=== PATIENT | female | born 1960 | race Caucasian/White ===

== ENCOUNTER 2021-10-30 12:30 | Outpatient (RCR) | payer OTHER, SELFPAY | END 2022-10-29 23:59 | disposition home or self-care (01) | PROVIDERS: PCP Family Medicine; Visit Provider Orthopaedic Surgery | DX: S62.615A Displaced fracture of proximal phalanx of left ring finger, initial encounter for closed fracture (principal); S62.617A Displaced fracture of proximal phalanx of left little finger, initial encounter for closed fracture; Z51.89 Encounter for other specified aftercare | CPT/HCPCS: 97110; 97140; 97165; X5282 ==

== ENCOUNTER 2025-02-11 08:38 | Emergency (ER) | payer OTHER, SELFPAY ==
--- OUTSIDE RECORDS SUMMARY | 2025-02-11 08:40 | XMS_ITS | Clinical Summary ---
Author Organization [employer] [facility] Address [address] [place] [address] Care Team Providers Care Rrts Name Role Phone Jennifer Austin DO Primary Care Provider [phone] Allergies No known active allergies Medications estradioL (Estrace) 0.01% (0.1 mg/g) vaginal creamIndications :Vaginal atrophy Place a pea-sized amount into the vaginal canal nightly for 2 weeks then 2-3 nights per week thereafter 42.5 g 3 4 Active chlorthalidone (HYGROTON) 25 mg tabletIndication s:Essential hypertension Take 1 Tablet (25 mg) by mouth once daily in the morning. 90 Tablet 3 5 Active potassium chloride (K-TAB) 10 mEq extended-release tabletIndication s:Hypokalemia Take 1 Tablet (10 mEq) by mouth once daily with a meal. 90 Tablet 3 5 Active gabapentin (NEURONTIN) 100 mg capsuleIndicatio ns:Restless legs syndrome (RLS) Take 2 Capsules (200 mg) by mouth at bedtime. 180 Capsule 3 5 Active valACYclovir (VALTREX) 1 gram tabletIndication s:Cold sore Take 1 Tablet (1 g) by mouth two times daily. Take for 2-3 days as needed for cold sores. 30 Tablet 5 Active traZODone (DESYREL) 50 mg tabletIndication s:Chronic insomnia Take 3 Tablets (150 mg) by mouth at bedtime. 270 Tablet 3 5 Active traZODone (DESYREL) 50 mg tabletIndication s:Chronic insomnia Take 3 Tablets (150 mg) by mouth at bedtime. 270 Tablet 3 4 025 Discontin ued(Reord er (E-cancel not sent)) valACYclovir (VALTREX) 1 gram tabletIndication s:Cold sore Take 1 Tablet (1 g) by mouth two times daily. Take for 2-3 days as needed for cold sores. 30 Tablet 4 025 Discontin ued(Reord er (E-cancel not sent)) gabapentin (NEURONTIN) 100 mg capsuleIndicatio ns:Restless legs syndrome (RLS) Take 2 Capsules (200 mg) by mouth at bedtime. 180 Capsule 3 5 025 Discontin ued(Reord er (E-cancel not sent)) chlorthalidone (HYGROTON) 25 mg tabletIndication s:Essential hypertension TAKE 1 TABLET(25 MG) BY MOUTH DAILY IN THE MORNING 60 Tablet 5 025 Discontin ued(Reord er (E-cancel not sent)) potassium chloride (K-TAB) 10 mEq extended-release tabletIndication s:Hypokalemia TAKE 1 TABLET(10 MEQ) BY MOUTH DAILY WITH A MEAL 90 Tablet 1 5 025 Discontin ued(Reord er (E-cancel not sent)) Active Problems Problem Noted Date Diagnosed Date Chronic constipation 02/20/2021 Essential hypertension 02/20/2021 Toe pain, chronic 10/07/2016 Colon polyp 04/15/2011 Overview (07/30/2022): Colonoscopy 04/2011 polyps repeat in 3 years Colonoscopy 06/2014 polyp repeat in 3 years Colonoscopy 07/2017 hyperplastic polyp, repeat in 5 years Colonoscopy 07/2022 normal, repeat in 5 years Abdominal pain, epigastric 08/07/2010 Overview (08/07/2010): EGD 07/2010 normal Dysmenorrhea 08/10/2007 DYSTHYMIC DISORDER, DEPRESSION/ANXIETY 7 ROSACEA, WITH ACNE 07/29/2006 Encounters Date Type Department Care Team Description 01/16/2025 8:55 AM CDT Office Visit [address] [place] [address] Jennifer Austin, DO Physical (64 year old female) 01/16/2025 Travel 01/13/2025 Travel 01/02/2025 Orders Only [facility] Scanner 1 scan: (1-Ord) [facility], SHAVE [facility], 01/02/2025 12/06/[address] [facility] [address] [place] [address] Jennifer Austin DO Refill Request (Chlorthalidone, Potassium Chloride) from Last 3 Months Immunizations Immunization Administration Dates Next Due AMB Influenza, IIV3 (Age >=3 years)(Flu Clinic Only) 02/03/2012,02/02/2011,02/20/2010,2008,02/27/2008 AMB Influenza, IIV4 PF (=>6 mos Flulaval,Fluzone Fluarix)(Flu Clinic Only) 02/04/2018,02/06/2017,02/20/2014 COVID-19 vaccine ([employer] [address] 30mcg/0.3mL) 12YO+ JASIEL-SUCROSE PF, MDV 11/05/2021 COVID-19 vaccine ([employer] NTech 30mcg/0.3mL) PF, MDV 02/20/2021,05/28/2020,05/07/2020 INFLUENZA, IIV3 PF (AGE >= 6 MO) 01/16/2025,01/11 Influenza, IIV3 (Age >=3 years) 01/03/2013,11/10 Influenza, IIV4 01/22/2023,,01/20/2021,2019,01/09/2019,12/28/2015,01/01/2015 Pneumococcal Conj 20-valent (Prevnar 20) 01/16/2025 Td (Age >=7 Years) 02/23/2022,03/25/2006 Tdap 11/06/2011,03/25/2006 Zoster (Shingrix-RZV, recombinant) 03/15/2019, Family History Medical History Relation Name Comments Cancer Father Judd Calderon renal/ mets to sternum Diabetes type II Father Judd Calderon Hyperlipidemia Father Judd Calderon Hypertension Father Judd Calderon Other Father Judd Calderon colon polyps Alcohol/Drug Maternal Grandmother Jasmyne Gibson Osteoporosis Maternal Grandmother Jasmyne Gibson Cancer-colon Mother Teresa Calderon colon resection Diabetes Mother Teresa Calderon Other Mother Teresa Calderon pulmonary fibro sis/valve blocked Diabetes type II Sister Malini Johns Hypertension Sister Malini Johns Cancer-breast No Family History Cancer-ovarian No Family History Relation Name Status Comments Father Judd Calderon (Age 73) kidney can cer, metastatic Maternal Grandmother Jasmyne Gibson Mother Teresa Calderon (Age 73) pulm fibro sis Sister Malini Johns Alive Social History Tobacco Use Types Packs/Day Years Used Date Smoking Tobacco: Former Cigarettes 0.3 21 1 04/12/1978 - 02/10/1997 Smokeless Tobacco: Never Tobacco Cessation:Counseling Given: Not Answered Comments:smoked for 18 yrs Alcohol Use Standard Drinks/Week Comments Yes 0 (1 standard drink = 0.6 oz pur e alcohol) BEER AND WINE /OCCASIONAL PHQ-2 Answer Date Recorded PHQ-2 TOTAL SCORE 0 01/16/2025 Social Connections Answer Date Recorded Do you often feel lonely or isolated from those around you? 0 01/13/2025 Financial Resource Strain Answer Date R ecorded Difficulty of Paying Living Expenses 3 01/13/2025 Difficulty of Paying Living Expenses Not on file 01/13/2025 Food Insecurity Answer Date Recorded Do you worry your food will run out before you are able to buy more? 1 01/13/2025 Transportation Needs Answer Date Record ed Does lack of transportation keep you from medica l appointments? 1 01/13/2025 Does lack of transportation keep you from work, meetings or getting things that you need? 1 01/13/2025 Housing Stability Answer Date Recorded What is your housing situation today? 1 01/13/2025 Utilities Answer Date Recorded Do you have trouble paying f or utilities (for example, heat, electricity, water, phone)? 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 Gender Identity Not on file Sexual Orientation Not on file Occupation Industry Job Start Date Job End Date Not on file Not on file Not on file Not on file Not on file Not on file Not on file Not on file Obstetrics History Para Term AB IAB SAB Ectopic Multiple Livin g Live Births 2 2 2 2 Date Outcome GA Total Labor Labor/2nd/3rd Weight Sex Type Anes PTL Alejandra A1 A5 Name Clin Term Term Last Filed Vital Signs Vital Sign Reading Time Taken Comments Blood Pressure 134/79 01/16/2025 9:02 AM CDT Pulse 72 01/16/2025 9:02 AM CDT Temperature 36.7 C (98.1 F) 12/29/2022 11:39 AM CDT Respiratory Rate 12 07/30/2022 9:20 AM CDT Oxygen Saturation 100% 01/16/2025 9:02 AM CDT Inhaled Oxygen Concentration - - Weight 70.8 kg (156 lb) 01/16/2025 9:02 AM CDT Height 157 cm (5' 1.81) 01/16/2025 9:02 AM CDT Body Mass Index 28.71 01/16/2025 9:02 AM CDT Plan of Treatment Health Maintenance Due Date Last Done Comments Mammogram for age 45-75 05/04/2025 05/04/19 25, 04/29/2023, 04/23/2022, Additional history exists BMI (ht and wt on same day) for age 18+ 01/16/2026 01/16/2025, 11/03/2023, 07/15/2023, Additional history exists Depression screening for age 12+ 01/16/2026 01/16/2025, 11/03/2023, 03/19/2023, Additional history exists Colonoscopy through age 75 07/31/202707/30, 07/30/2022, 07/30/2022, Additional history exists Lipids for age 45-75 01/16/2030 01/16/2025, 11/03/2023, 02/23/2022, Additional history exists Pap test for age 21-65 01/16/2030 , 01/16/2025, 01/18/2020, Additional history exists Tetanus booster 02/24/2032 02/23/2022, 10/11, 03/25/2006, Additional history exists RSV vaccine for adults or (1 - 1-dose 75+ series) 2037 Zoster (shingles) series for age 50+ Completed 03/15/2019, 01/09/2019 Hepatitis C screening for age 18-79 Completed 01/18/2020 HIV for age 15-65 Completed 09/30/2022 Influenza Vaccine Completed 01/16/2025, , 01/22/2023, Additional history exists Pneumococcal series for age 50+ Completed 01/16/2025 Hepatitis B series for 19+ Aged Out N o longer eligible based on patient's age to complete this topic Goals Goal Patient Goal Type Associated Problems Recent Progress Patient-Stated? Author BLOOD PRESSURE-MA INTAINS BP LESS THAN 130/80 Blood Pressure No Pamela Hart NP Procedures Procedure Name Priority Date/Time Associated Diagnosis Comments LIPID PANEL W REFLEX MEASURED LDL Routine 01/16/2025 9:46 AM CDT Lipid screening BASIC METABOLIC PANEL Routine 01/16/2025 9:46 AM CDT Essential hypertension INTERFACE ENGINEER THIN PREP PAP SCREEN IMAGED Routine 01/16/2025 9:34 AM CDT Screening for cervical cancer HPV HIGH RISK Routine 01/16/2025 9:34 AM CDT Screening for cervical cancer SCAN-OPERATIVE/PROC EDURE REPORT 01/02/2025 12:00 AM CDT XR MAMMO DAMIEN BILAT SCREEN Routine 05/04/2024 8:47 AM 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 CAR 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 Visit for screening mammogram LC HIV-1/O/2, 4TH GENERATION Routine 09/30/2022 2:26 PM CDT Encounter for screening for human immunodeficiency virus (HIV) COLONOSCOPY SCREENING Routine 07/30/2022 7:56 AM CDT History of colon polyps ANTI HCV Routine 01/18/2020 10:02 AM CDT Need for hepatitis C screening test from Last 3 Months or Most Recently Relevant to Health Maintenance Results * (ABNORMAL) LIPID PANEL W REFLEX MEASURED LDL (01/16/2025 9:46 AM CDT) CHOLESTEROL, TOTAL 205(H) <200 mg/dL 01/17/2025 3:13 AM CDT [facility] TRIGLYCERIDES 101 <150 mg/dL 01/17/2025 3:13 AM CDT [facility] HDL CHOLESTEROL 63 > OR = 50 mg/dL 01/17/2025 3:13 AM CDT [facility] NON HDL CHOLESTEROL 142(H) <130 mg/dL (calc) 01/17/2025 3:13 AM CDT [facility] Comment: For patients with diabetes plus 1 major ASCVD risk factor, treating to a non-HDL-C goal of <100 mg/dL (LDL-C of <70 mg/dL) is considered a therapeutic option. CHOL/HDLC RATIO 3.3 <5.0 (calc) 01/17/2025 3:13 AM CDT [facility] LDL-CHOLESTEROL 122(H) mg/dL (calc) 01/17/2025 3:13 AM CDT [facility] Comment: Reference range: <100 Desirable range <100 mg/dL for primary prevention; <70 mg/dL for patients with CHD or diabetic patients with > or = 2 CHD risk factors. LDL-C is now calculated using the Rakel calculation, which is a validated novel method providing better accuracy than the Friedewald equation in the estimation of LDL-C. Estevan SS et al. BERNARDO. 2013;310(19): 0737-7873 (http://education.LearnStreet.Family-Mingle/faq/VXE976) Blood BLOOD SPECIMEN / Unknown [facility] / Unknown 01/16/2025 9:46 AM CDT 01/16/2025 9:46 AM CDT us Jennifer Austin DO CHEMISTRY Final Result [facility] [address] [place] [address], * BASIC METABOLIC PANEL (01/16/2025 9:46 AM CDT) SODIUM 139 135 - 146 mmol/L 01/17/2025 3:13 AM CDT [facility] POTASSIUM 4.1 3.5 - 5.3 mmol/L 01/17/2025 3:13 AM CDT [facility] CARBON DIOXIDE 32 20 - 32 mmol/L 01/17/2025 3:13 AM CDT [facility] GLUCOSE 96 65 - 99 mg/dL 01/17/2025 3:13 AM CDT [facility] Comment: Fasting reference interval CALCIUM 9.7 8.6 - 10.4 mg/dL 01/17/2025 3:13 AM CDT [facility] CREATININE 0.66 0.50 - 1.05 mg/dL 01/17/2025 3:13 AM CDT [facility] BUN/CREATININE RATIO SEE NOTE: 6 - 22 (calc) 01/17/2025 3:13 AM CDT [facility] Comment: Not Reported: BUN and Creatinine are within reference range. EGFR 99 > OR = 60 mL/min/1. 73m2 01/17/2025 3:13 AM CDT [facility] UREA NITROGEN (BUN) 11 7 - 25 mg/dL 01/17/2025 3:13 AM CDT [facility] ELECTROLYTE BALANCE 7 7 - 17 mmol/L (calc) 01/17/2025 3:13 AM CDT [facility] CHLORIDE 100 98 - 110 mmol/L 01/17/2025 3:13 AM CDT [facility] Blood BLOOD SPECIMEN / Unknown [facility] / Unknown 01/16/2025 9:46 AM CDT 01/16/2025 9:46 AM CDT us Jennifer Austin DO CHEMISTRY Final Result [facility] [address] [place] [address], * INTERFACE ENGINEER THIN PREP PAP SCREEN IMAGED [[id number]] (01/16/2025 9:34 AM CDT) Case Report Gynecologic Cytology Report Case: [id number] Authorizing Provider: Jennifer Austin DO Collected: 01/16/2025 0934 Ordering Location: [facility] Received: 01/16/2025 0955 Clinic First Screen: Cristina Harris Specimen: INTERFACE ENGINEER ThinPrep Vial Screening, Cervical 01/23/2025 9:10 AM CDT [facility] INTERPRETATION/ RESULT NEGATIVE FOR INTRAEPITHELIAL LESION OR MALIGNANCY (NIL) (none) 01/23/2025 9:10 AM CDT [facility] at 0910 CDT SPECIMEN ADEQUACY Satisfactory for evaluation Endocervical component present 01/23/2025 9:10 AM CDT [facility] HPV REQUEST HPV and PAP 01/23/2025 9:10 AM CDT [facility] Date of LMP 09/24/2016 01/23/2025 9:10 AM CDT [facility] Last Pap Date 01/18/2020 01/23/2025 9:10 AM CDT [facility] ENTR[facility] LAB[facility] Last Pap Result NIL 9:10 AM CDT [facility] Abnormal Pap or [place] Bx in last 5 years No 01/23/2025 9:10 AM CDT [facility] Menstrual Status Postmenopausal 01/23/2025 9:10 AM CDT [facility] [place] Bx Done Today No 01/23/2025 9:10 AM CDT [facility] Additional Information None given 01/23/2025 9:10 AM CDT [facility] Comment: Cytology is screened at [facility] - [address], [place] [address] and [facility] - [address], [place] [address] [address] [facility] - [address] [place] [address] Interpreted at [facility] - [address] [place] [address] [place] [address] Automated Review Successful 01/23/2025 9:10 AM CDT [facility] Comment:Specimen processed s uccessfully by automated vice president education device, ThinPrep Imaging System, [employer] ANCILLARY TESTING INTERFACE ENGINEER HPV Ordered, Please see separate report 01/23/2025 9:10 AM CDT [facility] Note The pap test is a screening technique, not a diagnostic procedure. It is used primarily to screen for squamous cancers and precursor lesions. Published studies have shown that it is subject to both false negative and false positive results. The pap test should not be used as the sole means to diagnose or exclude pre-malignant and malignant lesions. 01/23/2025 9:10 AM CDT [facility] ENTRAL LAB[facility]ATORY Other (Cervical) Non-Blood / Unknown 01/16/2025 9:34 AM CDT 01/16/2025 9:55 AM CDT [employer] DO PATHOLOGY/CYTOLOGY Final Resu lt Performing Organization Address City/[facility]/ZIP Co de Phone Number [facility] [address] [place] [address], * HPV HIGH RISK (01/16/2025 9:34 AM CDT) TYPE 16 Negative Negative 01/19/2025 5:26 PM CDT [facility] TRAL LABORATORY TYPE 18 Negative Negative 01/19/2025 5:26 PM CDT [facility] TRAL LAB[facility]ORY OTHER HIGH RISK TYPES Negative Negative 01/19/2025 5:26 PM CDT [facility] TRAL LAB[facility] Other (Cervical) Non-Blood / Unknown 01/16/2025 9:34 AM CDT 01/17/2025 4:03 PM CDT Narrative [facility] - 01/19/2025 5:26 PM CDT HPV types 16, 18, 31, 33, 35, 39, 45, 51, 52, 56, 58, 59, 66 and 68 DNA were undetectable or below the pre-set threshold. Methodology: Paolo Phani 4800 HPV Test Heyo Perfectomary DO MICROBIOLOGY Final Result Performing Organization Address City/[facility]/ZIP Co de Phone Number [facility] [address] [place] [address], * SCAN-OPERATIVE/PROCEDURE REPORT (01/02/2025 12:00 AM CDT) Scanner OTHER Final Result * XR MAMMO DAMIEN BILAT SCREEN (05/04/2024 8:47 AM SAND CAR WORKER) Anatomical Region Laterality Modality BREASTS, Breast Left, Breast Right Bilateral Mammography Impressions 05/04/2024 3:18 PM SAND CAR WORKER There is no radiographic evidence for malignancy. Recommend annual mammograms. MAMMOGRAM ASSESSMENT: ACR 1 Negative PATIENTS: You will also receive a letter with your examination results in an easy to read format. If you have questions about your results, please contact your referring provider. Narrative 05/04/2024 3:18 PM SAND CAR WORKER For Patients: As a result of the Century Cures Act, medical imaging exams and procedure reports are released immediately into your electronic medical record. You may view this report before your referring provider. If you have questions, please contact your health care provider. XR MAMMO DAMIEN BILAT SCREEN [[id number]] CLINICAL HISTORY: This is an asymptomatic 64 y.o. patient. INDICATION FOR EXAM: Mammogram Screening. TECHNIQUE: CC & MLO views were obtained. This study was evaluated with the assistance of Computer-Aided Detection. Breast Tomosynthesis was used in interpretation. COMPARISON FILM: Yes 04/29/23 [facility] 04/23/22 [facility] FINDINGS: There are scattered areas of fibroglandular density. There are no dominant masses, suspicious micro calcifications or areas of architectural distortion. us Jennifer Alejandra Shaqra DO MAMMO Final Result * LC HIV-1/O/2, 4TH GENERATION (09/30/2022 2:26 PM CDT) HIV Scr 4th Gen Non Reactive Non Reactive 10/02/2022 12:09 PM CDT [facility] Comment: HIV Negative HIV-1/HIV-2 antibodies and HIV-1 p24 antigen were NOT detected. There is no laboratory evidence of HIV infection. Blood BLOOD SPECIMEN / Unknown Venipuncture / Unknown 09/30/2022 2:26 PM CDT 09/30/2022 2:27 PM CDT Narrative [facility] - 10/02/2022 12:09 PM CDT Performed at: [facility] [address] [facility], [place], [place] [id number] Education Intern: Dillan Pena MD, Phone: [phone] us Jes [facility] Final Res ult [facility] ([facility]) [facility] [place] [address], * COLONOSCOPY (07/30/2022 7:50 AM CDT) 07/30/2022 7:50 AM CDT Narrative Transcriptions Estevan Hidalgo MD - 07/30/2022 9:07 AM CDT Patient Name: Divine Johns Procedure Date: 07/30/2022 Gender: Female Date of : 1960 Admit Type: Outpatient Procedure: Colonoscopy Proceduralist: Estevan Hidalgo MD , Tiffanie Arredondo (Nurse) Referring MD: Yue Bass Indications/Pre-Op Diagnosis: High risk colon cancer surveillance:Personal history of adenoma (10 mm or greater insize), Last colonoscopy: July 2017 Medications: Fentanyl 100 micrograms IV, Midazolam 3 mgIV, The level of sedation administered wasmoderate Procedure Description: The patient had risks, benefits and alternatives explained to andgave informed consent. The patient had a stable cardiopulmonary status and judged an adequate candidate for conscious sedation. The endoscope [id number]-[id number] was passed through the anus andadvanced to the cecum, identified by appendiceal orifice and ileocecal valve.The colonoscopy was performed without difficulty. The patient toleratedthe procedure well. The quality of the bowel preparation was good. The ileocecal valve, appendiceal orifice, and rectum were photographed. Complications: No immediate complications. Estimated Blood Loss & Specimen: Estimated blood loss: none. Specimen collected - None Findings: The perianal and digital rectal examinations were normal. A small post polypectomy scar was found in the rectum. The scartissue was healthy in appearance. There was no evidence of the previouspolyp. The exam was otherwise without abnormality on direct and retroflexion views. Impressions/Post-Op Diagnosis: - Post-polypectomy scar in the rectum. - The examination was otherwise normal on direct and retroflexionviews. - No specimens collected. Recommendation: - Patient has a contact number available for emergencies. The signsand symptoms of potential delayed complications were discussed with the patient. Return to normal activities tomorrow. Written discharge instructions were provided to the patient. - Resume previous diet. - Continue present medications. - Repeat colonoscopy in 5 years for surveillance. Moderate Sedation: A time out was performed before the procedure. Moderate (conscious) sedation was administered by the endoscopy nurse and supervised bythe endoscopist. The following parameters were monitored: oxygensaturation, heart rate, blood pressure, EKG, CO2, respiratory rate, adequacy of pulmonary ventilation and reponse to care. Please refer to the patient's medical record flowsheets and nursing notes for moderate sedation details. Total physician intraservice time was 19 minutes. Estevan Hidalgo MD 07/30/2022 9:07:06 AM This report has been signed electronically. Note Initiated On: 07/30/2022 7:50 AM Procedure Code(s): --- Professional --- 97555, Colonoscopy, flexible; diagnostic, including collection of specimen(s) bybrushing or washing, when performed (separateprocedure) Diagnosis Code(s): --- Professional --- Z86.010, Personal history of colonicpolyps Z98.890, Other specified postproceduralstates CPT copyright 2021 [employer]. All rights reserved. The codes documented in this report are preliminary and upon polytechnic registrar reviewmay be revised to meet current compliance requirements. Scope In: 8:44:26 AM Scope Withdrawal Time 0 hours 9 minutes 32 seconds Scope Out: 9:00:57 AM us Etsevan Hidalgo MD PROCEDURE ORD Final Res ult * ANTI HCV (01/18/2020 10:02 AM CDT) HEPATITIS C ANTIBODY Non-React steve Non-React steve 01/18/2020 7:25 PM CDT [facility] [place] [facility] Comment:Antibodies to HCV no t detected; does not exclude the possibility of exposure to HCV. Blood BLOOD SPECIMEN / Unknown Venipuncture / Unknown 01/18/2020 10:02 AM CDT 01/18/2020 10:07 AM CDT us Yue Bass MD SEND OUTS Final Result [facility] [place] [facility] [address] [place] [address], [place] from Last 3 Months or Most Recently Relevant to Health Maintenance Insurance [facility] Care Teams Rrts Relationship Specialty Start Date End Date Jennifer Austin DO [address] [place] [address] PCP - General Family Practice 11/02/22
[2025-02-11 08:41] VITALS: BP 145/75; PULSE 90; RESP 16; TEMP 36.9; O2SAT 96; BMI 28.3
--- NOTE | 2025-02-11 09:07 | CRLHL7_ITS ---
For Patients: As a result of the Cures Act, medical imaging exams and procedure reports are released immediately into your electronic medical record. You may view this report before your referring provider. If you have questions, please contact your health care provider. INDICATION: Fall. Hit forehead. TECHNIQUE: CT of the face without contrast. Coronal reconstructions are included. COMPARISON: None. FINDINGS: No acute fracture of the maxillofacial bones. No significant soft tissue injury. The orbital contents are normal in appearance. There is no evidence for penetrating injury to the ocular globes. The lenses are situated in their normally expected anterior locations. No radiodense or metallic foreign body is demonstrated. Complete opacification of the left maxillary sinus with lateral bowing of the maxillary sinus medial wall compatible with sinus atelectasis. Minimal leftward nasal septal deviation and septal spur. The visualized portions of the brain are normal in appearance. IMPRESSION: 1. No acute fracture of the maxillofacial bones. Please note that all CT scans at this facility use dose modulation, iterative reconstruction, and/or weight-based dosing when appropriate to reduce radiation dose to as low as reasonably achievable. Dictated by Yordan Chapman MD @ 02/11/2025 9:48:44 AM (Electronically Signed)
--- NOTE | 2025-02-11 09:09 | CRLHL7_ITS ---
For Patients: As a result of the Century Cures Act, medical imaging exams and procedure reports are released immediately into your electronic medical record. You may view this report before your referring provider. If you have questions, please contact your health care provider. INDICATION: Fall. Hit head. TECHNIQUE: CT of the head without contrast. Coronal and sagittal reformats are included. COMPARISON: None. FINDINGS: No acute intracranial hemorrhage. No mass effect or midline shift. No hydrocephalus or extra-axial collections. White matter is within normal limits for age. No acute osseous abnormalities. Mastoid air cells and paranasal sinuses are clear. A small left anterior frontal scalp hematoma. IMPRESSION: IMPRESSION: 1. No acute intracranial abnormalities. Please note that all CT scans at this facility use dose modulation, iterative reconstruction, and/or weight-based dosing when appropriate to reduce radiation dose to as low as reasonably achievable. Dictated by Yordan Chapman MD @ 02/11/2025 9:44:16 AM (Electronically Signed)
--- NOTE | 2025-02-11 09:12 | ED.FALL ---
HPI - Fall General Date Seen: 02/11/25 Chief Complaint: Fall/Minor Trauma Stated Complaint: fall Time Seen by Provider: 02/11/25 08:41 Source: patient Mode of arrival: ambulatory Limitations: no limitations History of Present Illness HPI Narrative: Patient is a 64-year-old female presenting to the emergency department after a fall. He is concerned she could have broke her nose. She started Augmentin after having a tooth pulled 6 days ago. While on the Augmentin she has been having abdominal pain and soft stool. Has not had any watery diarrhea. She took the medication for 3 days but was unable to get Wednesday as she was out of town for got to bring it with her. She started taking the medicine again on Wednesday. On Wednesday while she is taking medication she was asymptomatic but when she start taking the medicine again on Wednesday she developed the nausea and soft stools again. States she has some mild abdominal discomfort. States last night she was feeling nauseated and felt like she was going to throw up. She states she got lightheaded and passed out. She woke up altered quickly she states and was feeling back to normal but had pain to the nose. She went back to bed she woke up and was feeling well other than her painful nose. She does states swelling seems to have gone down already. She has not had any further lightheadedness or dizziness. She denies any nausea at this time. 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 Bruising to her nasal bridge, no hematomas noted within the nares. Appears to have a straight nasal septum. Moist mucous membranes. No palpable skull fractures. There is a small hematoma above her left eye. Neck: Symmetric, trachea midline, No thyromegaly. CVS: RRR, No murmurs or gallops. Peripheral pulses 2+ and equal in all extremities RESP: Unlabored respiratory effort. Clear to auscultation bilaterally. GI: Nontender/Nondistended, No rebound or guarding. MSK:Extremities w/o deformity, Normal Active ROM, no midline cervical tenderness. Able to rotate her neck greater than 45? both ways. Skin: Warm, Dry. No rashes or lesions. Neuro: Normal Muscle tone, No focal neurological deficits. Psych: Awake, Alert, & Oriented x3. Appropriate mood and affect. Const: Vital Signs, click to edit/add: Vital Signs - 24 hr 02/11/25 08:41 Temperature 98.5 F Pulse Rate [Right Radial] 90 Respiratory Rate 16 Blood Pressure [Ri ght Upper Arm] 145/75 H Pulse Oximetry 96 Oxygen Delivery Me thod Room Air Course Vital Signs Vital signs: Initial Vital Signs Temperature 98.5 F 02/11/25 08:41 Temperature Source Temporal Artery Scan 02/11/25 08:41 Pulse Rate 90 02/11/25 08:41 Pulse Rhythm Regular 02/11/25 08:41 Respiratory Rate 16 02/11/25 08:41 Blood Pressure 145/75 H 02/11/25 08:41 Blood Pressure Mean 98 02/11/25 08:41 Pulse Oximetry 96 02/11/25 08:41 Oxygen Delivery Method Room Air 02/11/25 08:41 Vital Signs Temperature 98.5 F 02/11/25 08:41 Pulse Rate 90 02/11/25 08:41 Respiratory Rate 16 02/11/25 08:41 Blood Pressure 145/75 H 02/11/25 08:41 Pulse Oximetry 96 02/11/25 08:41 Oxygen Delivery Method Room Air 02/11/25 08:41 Temperature 98.5 F 02/11/25 08:41 Pulse Rate 90 02/11/25 08:41 Respiratory Rate 16 02/11/25 08:41 Blood Pressure 145/75 H 02/11/25 08:41 Pulse Oximetry 96 02/11/25 08:41 Oxygen Delivery Method Room Air 02/11/25 08:41 MDM - Fall MDM Narrative Medical decision making narrative: Patient is 64-year-old female presenting to the emergency department after a fall. Sounds like the fall was due to nausea making her lightheaded. No other symptoms noted at this time. She is mostly concerned that she may have broke her nose. Per [place] C-spine rules a cervical CT is not necessary. Considering I am unsure how hard she really fell considering she passed out I do think we should do a head CT. She is not on any blood thinners. Will also do a facial bone CT. I spoke to her about possibly doing lab work to make sure she has no electrolyte abnormalities that could have caused the symptoms but this time she declined. Imaging reviewed by myself and the radiologist showed no acute concerning abnormalities. She is doing well at this time will be discharged. She is agreeable to this plan. Imaging Data CT scan head: Attestation: I have reviewed the pertinent imaging results. Radiologist's impression: 1. No acute intracranial abnormalities. Please note that all CT scans at this facility use dose modulation, iterative reconstruction, and/or weight-based dosing when appropriate to reduce radiation dose to as low as reasonably achievable. Dictated by Yordan Chapman MD @ 02/11/2025 9:44:[address] scan facial bones: Attestation: I have reviewed the pertinent imaging results. Radiologist's impression: 1. No acute fracture of the maxillofacial bones. Please note that all CT scans at this facility use dose modulation, iterative reconstruction, and/or weight-based dosing when appropriate to reduce radiation dose to as low as reasonably achievable. Dictated by Yordan Chapman MD @ 02/11/2025 9:48:44 AM Discharge Plan Discharge Clinical Impression: Closed head injury Qualifiers: Encounter type: initial encounter Qualified Code(s): S09.90XA - Unspecified injury of head, initial encounter Contusion of nose Qualifiers: Encounter type: initial encounter Qualified Code(s): S00.33XA - Contusion of nose, initial encounter Patient Disposition: Home, Self-Care Condition: Stable Instructions: Head Injury (ED) Additional Instructions: There is no signs of acute abnormalities on imaging. Her nose will likely be sore for the next few days to week and should start to improve after that. Return to emergency department for new or worsening symptoms. Prescriptions: No Action chlorthalidone 25 mg tablet 25 mg PO DAILY ibuprofen 600 mg tablet 600 mg PO PRN Follow Up/Referrals: Yue Bass MD [Referring, Family Practice] Stand Alone Forms: boolino Info Instructions
== END 2025-02-11 09:55 | disposition home or self-care (01) ==
PROVIDERS: Emergency Provider Student in an Organized Health Care Education/Training Program; PCP Family Medicine
DX: S09.90XA Unspecified injury of head, initial encounter (principal); S09.92XA Unspecified injury of nose, initial encounter; R11.0 Nausea; R10.9 Unspecified abdominal pain; W19.XXXA Unspecified fall, initial encounter
CPT/HCPCS: 70450; 70486; 99283; 99284